=== PATIENT | female | born 1975 | race African-American/Black ===

== ENCOUNTER 2016-12-25 22:32 | Emergency (ER) | payer MEDICAID ==
[~2016-12-25] VITALS: Ht 162.6 cm; Wt 81.6 kg
[~2016-12-25 22:32] MED LIST: ALBUTEROL SULF8.5 GM INH; AZITHROMYCIN250 MG ORAL; CLINDAMYCIN HC150 MG ORAL; FLOVENT2 PUFF2 INH; IBUPROFEN600 MG PO; MUCINEX600 MG PO; NKM; NORCO 5-325 TA1 EACH PO; PREDNISONE20 MG ORAL; PREDNISONE20 MG PO
[2016-12-25] MEDS ORDERED: NKM (22:51)
[2016-12-25 23:15] VITALS: BP 148/77
[2016-12-25 23:42] LABS: BASOPHILS % (AUTO) 0.9 % (0.0-2.0); EOSINOPHILS % (AUTO) 4.5 % (0.0-3.0); LYMPHOCYTES % (AUTO) 49.4 % (20.0-45.0); MEAN CORPUSCULAR HEMOGLOBIN 30.9 PG (27.0-31.0); MEAN CORPUSCULAR VOLUME 91 FL (80-99); NEUTROPHILS % (AUTO) 36.1 % (45.0-75.0); PLATELET COUNT 259 K/UL (150-450); RED BLOOD COUNT 4.47 M/UL (4.20-5.40); RED CELL DISTRIBUTION WIDTH 12.6 % (11.6-14.8); WHITE BLOOD COUNT 5.4 K/UL (4.8-10.8)
[2016-12-26 00:03] LABS: ALANINE AMINOTRANSFERASE 13 U/L (3-33); ALBUMIN/GLOBULIN RATIO 1.2 (1.0-2.7); ANION GAP 15 (5-15); ASPARTATE AMINO TRANSFERASE 13 U/L (5-40); CALCIUM 9.4 mg/dL (8.6-10.2); CARBON DIOXIDE 24 mEQ/L (20-30); CHLORIDE 99 mEQ/L (98-107); GLOMERULAR FILTRATION RATE > 60 mL/min (>60); HEMOLYSIS 16; POTASSIUM 4.1 mEQ/L (3.4-4.9); SODIUM 138 mEQ/L (135-145); TOTAL PROTEIN 7.5 g/dL (6.6-8.7)
[2016-12-26 01:15] VITALS: BP 144/75
--- NOTE | 2016-12-26 10:04 | Diagnostic Imaging Report ---
Indication:Lower abdominal and pelvic pain Technique: Grayscale and duplex Doppler imaging of the pelvis performed utilizing a transabdominal scan and endovaginal scan. Comparison: None Findings: There is a posterior uterine fibroid measuring about 3.3 cm. The uterus is heterogeneous. Endometrial stripe is about 8 mm. Both ovaries are seen and appear normal with Doppler evidence of blood flow. Impression: 3.3 cm posterior uterine fibroid. Negative examination otherwise.
--- NOTE | 2016-12-29 08:02 | Emergency Room Report ---
History of Present Illness General Chief Complaint: Vaginal Source: Patient Present Illness HPI Patient is a 41-year-old female who presented after having increased vaginal bleeding. Patient gradual onset of symptoms. Patient had recently been diagnosed as possibly being . She reported having a quantitative hCG which was approximately 600. The patient had not been vomiting or having any diarrhea. Patient had any severe pain. She reported having some abdominal cramping associated with some vaginal bleeding. This had been approximately similar to her period. She reported last menstrual period approximately the beginning of October. Allergies: Coded Allergies: PENICILLINS (Verified Allergy, Intermediate, 10/31/12) Patient History Past Medical History: see triage record Last Menstrual Period: OCTOBER Now: No : 10 Para: 8 Reviewed Nursing Documentation: PMH: Agreed, PSxH: Agreed Nursing Documentation-PMH Past Medical History: No Stated History Hx Cardiac Problems: No Hx Hypertension: No Hx Pacemaker: No Hx Asthma: Yes Hx COPD: No Hx Diabetes: No Hx Cancer: No Hx Gastrointestinal Problems: No Hx Dialysis: No Hx Neurological Problems: No Hx Cerebrovascular Accident: No Hx Seizures: No Review of Systems All Other Systems: negative except mentioned in HPI Physical Exam Vital Signs Date Time Temp Pulse Resp B/P Pulse Ox O2 Delivery O2 Flow Rate FiO2 12/25/16 22:46 98.2 78 18 148/77 99 12/25/16 23:15 Room Air General Appearance: well appearing, no apparent distress, alert, GCS 15 Head: normocephalic, atraumatic ENT: hearing grossly normal, normal voice Neck: full range of motion, supple Respiratory: no respiratory distress, speaking full sentences Cardiovascular #1: normal inspection, normal peripheral pulses, regular rate, rhythm Gastrointestinal: normal inspection, non tender, soft Musculoskeletal: no calf tenderness Neurologic: normal inspection, alert, oriented x3, responsive, hunter trapper III-XII nml as tested, normal gait Psychiatric: mood/affect normal Skin: normal inspection, no rash Medical Decision Making Diagnostic Impression: Primary Impression: Threatened ER Course Patient presented for vaginal bleeding. Differential diagnosis included wasn't limited to ectopic , menorrhagia, coagulopathy, incomplete , threatened among others.Because of complexity of patient's case laboratory testing and imaging studies were ordered. Patient was noted to have no evidence of intrauterine on ultrasound. Adnexa appear to be normal. Quantitative hCG was noted to be below discriminatory zone and lower than reported previous. The patient is advised to follow up with [facility] in 2 days for repeat beta hCG testing. The patient appears to have a threatened versus missed Patient is advised to return if any worsening condition or if any changes in status that are concerning. Labs Test 12/25/16 23:27 White Blood Count 5.4 K/UL (4.8-10.8) Red Blood Count 4.47 M/UL (4.20-5.40) Hemoglobin 13.8 G/DL (12.0-16.0) Hematocrit 40.5 % (37.0-47.0) Mean Corpuscular Volume 91 FL (80-99) Mean Corpuscular Hemoglobin 30.9 PG (27.0-31.0) Mean Corpuscular Hemoglobin Concent 34.0 G/DL (32.0-36.0) Red Cell Distribution Width 12.6 % (11.6-14.8) Platelet Count 259 K/UL (150-450) Mean Platelet Volume 7.0 FL (6.5-10.1) Neutrophils (%) (Auto) 36.1 % (45.0-75.0) Lymphocytes (%) (Auto) 49.4 % (20.0-45.0) Monocytes (%) (Auto) 9.0 % (1.0-10.0) Eosinophils (%) (Auto) 4.5 % (0.0-3.0) Basophils (%) (Auto) 0.9 % (0.0-2.0) Prothrombin Time 10.0 SEC (9.30-11.50) Prothromb Time International Ratio 1.0 (0.9-1.1) Activated Partial Thromboplast Time 26 SEC (23-33) Sodium Level 138 mEQ/L (135-145) Potassium Level 4.1 mEQ/L (3.4-4.9) Chloride Level 99 mEQ/L (98-107) Carbon Dioxide Level 24 mEQ/L (20-30) Anion Gap 15 (5-15) Blood Urea Nitrogen 19 mg/dL (7-23) Creatinine 1.0 mg/dL (0.5-0.9) Estimat Glomerular Filtration Rate > 60 mL/min (>60) Glucose Level 102 mg/dL (74-106) Calcium Level 9.4 mg/dL (8.6-10.2) Total Bilirubin < 0.2 mg/dL (0.0-1.2) Aspartate Amino Transf (AST/SGOT) 13 U/L (5-40) Alanine Aminotransferase (ALT/SGPT) 13 U/L (3-33) Alkaline Phosphatase 53 U/L (35-104) Total Protein 7.5 g/dL (6.6-8.7) Albumin 4.1 g/dL (3.5-5.2) Globulin 3.4 g/dL Albumin/Globulin Ratio 1.2 (1.0-2.7) Human Chorionic Gonadotropin, Quant 535 mIU/mL Last Vital Signs Date Time Temp Pulse Resp B/P Pulse Ox O2 Delivery O2 Flow Rate FiO2 12/26/16 01:15 98.1 81 17 144/75 99 Room Air Status: improved Disposition: HOME, SELF-CARE Condition: Stable Patient Instructions: Threatened Miscarriage Merrick Pierce Dec 29, 2016 08:02
== END 2016-12-26 01:15 | disposition home or self-care (01) ==
LOC: EMR 23:10
DX: O20.0 Threatened abortion (principal); Z3A.01 Less than 8 weeks gestation of pregnancy; J45.909 Unspecified asthma, uncomplicated; Z88.0 Allergy status to penicillin
CPT/HCPCS: 36415; 76830; 76856; 80053; 84702; 85025; 85610; 85730; 99284

== ENCOUNTER 2019-10-12 20:12 | Emergency (ER) | payer MEDICAID ==
[~2019-10-12] VITALS: Ht 165.1 cm; Wt 87.5 kg
[2019-10-12 20:25] VITALS: BP 106/64
--- NOTE | 2019-10-12 20:25 | NUR ---
ED Nurse Note: Patient walked into ED c/o acid reflux that has been increasing for the past 2 days however patient reports of not taking her medications for some time. does not know the medication she is prescribed. Denies n/v/d. No SOB. Afebrile. VSS.
--- NOTE | 2019-10-12 20:27 | NUR ---
ED Nurse Note: ERPA at bedside
[2019-10-12] MEDS ORDERED: PROTONIX40 MG ORAL (20:42)
--- NOTE | 2019-10-12 20:42 | Emergency Room Report ---
History of Present Illness General Chief Complaint: General Complaint Present Illness HPI 44-year-old female with history of chronic gastritis, esophagitis, alcohol abuse , and chronic cholecystitis here complaining of worsening esophagitis x2 days. Patient reports that for the past 2 days she is unable to swallow hard chunky food that she feels a lot of burping and pain. Patient reports that she has been a drinker for the past several years and drinks 2 glasses of vodka every day. Patient shows me reports of endoscopy that was done this past May by her cloth desizing range tender and reported esophagitis and gastritis. Patient continues to drink alcohol and take ibuprofen. Patient is for pain. Also reports that she had an abdominal ultrasound done this past May and was diagnosed with cholecystitis chronically.. Patient was seen by her cloth desizing range tender 2 days ago and has a pending referral to general surgery. At this time patient does not have any pain or tenderness to palpation of the right upper quadrant. Reports that she does not remember the name of the antacid that she was taking but started with P. She has not taken any antacid for several weeks now. Is requesting a refill of her antacid. Denies nausea vomiting at this time. Denies diarrhea and constipation. Denies bloody emesis. Sitting comfortably with stable vital signs. Denies fever and chills Allergies: Coded Allergies: PENICILLINS (Verified Allergy, Intermediate, 10/31/12) Patient History Past Medical History: see triage record Past Surgical History: none Pertinent Family History: none Social History: Reports: alcohol use - daily use Last Menstrual Period: 09/12/19 Now: No Immunizations: UTD Reviewed Nursing Documentation: PMH: Agreed; PSxH: Agreed Nursing Documentation-PMH Hx Cardiac Problems: No Hx Hypertension: No Hx Pacemaker: No Hx Asthma: Yes Hx COPD: No Hx Diabetes: No Hx Cancer: No Hx Gastrointestinal Problems: Yes - Heart burn, GERD, gastritis, cholecystitis , esophagitis Hx Dialysis: No Hx Neurological Problems: No Hx Cerebrovascular Accident: No Hx Seizures: No Review of Systems All Other Systems: negative except mentioned in HPI Physical Exam Vital Signs Date Time Temp Pulse Resp B/P (MAP) Pulse Ox O2 Delivery O2 Flow Rate FiO2 10/12/19 20:21 98.1 76 18 106/64 (78) 98 Room Air Sp02 EP Interpretation: reviewed, normal General Appearance: no apparent distress, alert, GCS 15, non-toxic Head: normocephalic, atraumatic Eyes: bilateral eye normal inspection, bilateral eye PERRL ENT: hearing grossly normal, normal pharynx, no angioedema, normal voice Neck: full range of motion, supple/symm/no masses Respiratory: chest non-tender, lungs clear, normal breath sounds, no rhonchi, speaking full sentences Cardiovascular #1: regular rate, rhythm, no edema, no murmur, normal capillary refill Gastrointestinal: normal bowel sounds, non tender, soft, no mass, no organomegaly, no peritonitis, no bruit, non-distended, no guarding, no hernia, no pulsatile mass, no rebound, other - Negative Velasquez sign Genitourinary: no CVA tenderness Neurologic: alert, motor strength/tone normal, toll collector III-XII nml as tested Psychiatric: judgement/insight normal, memory normal, mood/affect normal, no suicidal/homicidal ideation Skin: no rash Lymphatic: normal inspection, no adenopathy Medical Decision Making PA Attestation All my diagnosis and treatment plans were reviewed ad discussed with my supervising physician Dr. Henderson Diagnostic Impression: Primary Impression: Chronic reflux esophagitis Additional Impressions: Chronic gastritis Chronic cholecystitis ER Course 44-year-old female with history of chronic gastritis, esophagitis, alcohol abuse , and chronic cholecystitis here complaining of worsening esophagitis x2 days. Patient reports that for the past 2 days she is unable to swallow hard chunky food that she feels a lot of burping and pain. Patient reports that she has been a drinker for the past several years and drinks 2 glasses of vodka every day. Patient shows me reports of endoscopy that was done this past May by her cloth desizing range tender and reported esophagitis and gastritis. Patient continues to drink alcohol and take ibuprofen. Patient is for pain. Also reports that she had an abdominal ultrasound done this past May and was diagnosed with cholecystitis chronically.. Patient was seen by her cloth desizing range tender 2 days ago and has a pending referral to general surgery. At this time patient does not have any pain or tenderness to palpation of the right upper quadrant. Reports that she does not remember the name of the antacid that she was taking but started with P. She has not taken any antacid for several weeks now. Is requesting a refill of her antacid. Denies nausea vomiting at this time. Denies diarrhea and constipation. Denies bloody emesis. Sitting comfortably with stable vital signs. Denies fever and chills Ddx considered but are not limited to: Gastritis, esophagitis, cholecystitis, achalasia Vital signs: are WNL, pt. is afebrile H&PE are most consistent with: Chronic gastritis, chronic cholecystitis, chronic esophagitis ORDERS: Protonix ED INTERVENTIONS: None required at this time. DISCHARGE: At this time pt. is stable for d/c to home. Will provide printed patient care instructions, and any necessary prescriptions. Care plan and follow up instructions have been discussed with the patient prior to discharge. At this time no blood work or imaging needed as patient just recently had them done by cloth desizing range tender and primary care physician. Patient currently have an active pending authorization versus referral for gastroenterology and general surgery. Patient has probably developed achalasia to be further evaluated by cloth desizing range tender and another endoscopy may be needed. I advised patient to stop drinking alcohol and taking ibuprofen and pain. Also advised patient to return to emergency room if any worsening symptoms Last Vital Signs Date Time Temp Pulse Resp B/P (MAP) Pulse Ox O2 Delivery O2 Flow Rate FiO2 10/12/19 20:25 98.1 76 18 106/64 98 Room Air Disposition: HOME, SELF-CARE Condition: Stable Scripts Pantoprazole* (PROTONIX*) 40 Mg Tablet. 40 MG ORAL DAILY, #30 TAB Prov: Samantha Wiley 10/12/19 Patient Instructions: Cholecystitis, [id number], Esophagitis, Food Choices for Gastroesophageal Reflux Disease, Adult, [id number], Gastritis, Adult Additional Instructions: Follow-up with your cloth desizing range tender for another endoscopy as you may have achalasia. Also he has a pending referral to general surgeon for your chronic cholecystitis. Avoid eating greasy, spicy, acidic food. Avoid drinking alcohol as it is the source of your worsening esophagitis. Avoid taking ibuprofen, Advil, Motrin. At this time no imaging and blood work needed as your symptoms are chronic and you have recently had full work-up by your cloth desizing range tender. However if worsening symptoms, fever and chills, nausea vomiting return to emergency room. Samantha Wiley Oct 12, 2019 20:42
[2019-10-12 20:50] VITALS: BP 106/64
--- NOTE | 2019-10-12 20:50 | NUR ---
ED Nurse Note: Pt cleared by ERPA for discharge. DC instructions/prescription was given and explained to pt and verbalized understanding of teachings. All medical deviecs such as ID band removed. Pt is AAO x4, ambulatory and left with all personal belongings. Accompanied by a friend.
== END 2019-10-12 20:50 | disposition home or self-care (01) ==
LOC: EMR 20:45
DX: K21.0 Gastro-esophageal reflux disease with esophagitis (principal); K29.50 Unspecified chronic gastritis without bleeding; K81.1 Chronic cholecystitis; Z88.0 Allergy status to penicillin
CPT/HCPCS: 99282